=== PATIENT | female | born 1965 ===

== ENCOUNTER 2019-06-08 17:49 | Emergency (ER) | payer OTHER ==
[~2019-06-08] VITALS: Ht 157.5 cm; Wt 95.5 kg
[2019-06-08 17:53] VITALS: BP 163/78
--- NOTE | 2019-06-08 21:08 | NUR ---
PT CALLED FROM [facility], SEEN LEAVING BY REGBelle REDDING
== END 2019-06-08 21:10 | disposition left against medical advice (07) ==
LOC: EDBD 17:49 → ED 21:04
DX: R55 Syncope and collapse (principal); Z53.21 Procedure and treatment not carried out due to patient leaving prior to being seen by health care provider
CPT/HCPCS: 93005